=== PATIENT | male | born 1990 | race Caucasian/White ===

== ENCOUNTER 2023-11-10 13:21 | Emergency (ER) | payer BC ==
--- NOTE | 2023-11-10 13:59 | EDPHYS ---
Physician Documentation [facility] Name: Arie Martinez Age: 33 yrs Sex: Male : 1990 Arrival Date: 11/10/2023 Time: 13:21 Bed IW1 Private MD: ED Physician Fadi Gamez HPI: 11/09 13:51 This 33 yrs old Male presents to ER via Ambulatory with complaints of Insect Bite. cp 13:51 The patient was bitten on the left forearm, by insect. Onset: The symptoms/episode cp began/occurred 2 day(s) ago. Associated signs and symptoms: Pertinent positives: erythema at site, swelling at site, tenderness, Pertinent negatives: fever. Historical: - Allergies: 13:47 BEE STING; db - PMHx: 13:47 None; db - Immunization history:: Adult Immunizations unknown. - Infectious Disease History:: Denies. - Social history:: Smoking status: Patient denies any tobacco usage or history of. ROS: 13:53 Constitutional: Negative for body aches, chills, fever, poor PO intake, cp 13:53 Respiratory: Negative for cough, shortness of breath, wheezing, 13:53 Skin: Positive for erythema, swelling, of the left forearm, insect bite, Exam: 13:56 Head/Face: Normocephalic, atraumatic. cp 13:56 Constitutional: The patient appears in no acute distress, alert, awake, comfortable, non-toxic, well developed, well nourished, 13:56 Cardiovascular: Rate: normal, Rhythm: regular, 13:56 Respiratory: the patient does not display signs of respiratory distress, Respirations: normal, no use of accessory muscles, no retractions, labored breathing, is not present, 13:56 Skin: small superficial punctate bite appearing wound volar side mid left forearm with mild swelling and mild erythema. Vital Signs: 13:45 BP 153 / 87; Pulse 70; Resp 18; Temp 97.8; Pulse Ox 97% ; Weight 102.97 kg; Height 6 db ft. 4 in. ; 13:45 Body Mass Index 27.63 (102.97 kg, 193.04 cm) db MDM: 13:58 Data reviewed: vital signs, nurses notes, and as a result, I will discharge patient. cp 13:58 Differential diagnosis: cellulitis, abscess. Counseling: I had a detailed discussion cp with the patient and/or guardian regarding the historical points, exam findings, and any diagnostic results supporting the discharge/admit diagnosis, to return to the emergency department if symptoms worsen or persist or if there are any questions or concerns that arise at home. 13:59 Patient medically screened. cp Administered Medications: No medications were administered Disposition: 20:51 I was immediately available on-site in the Emergency Department for consultation in the ms3 care of the patient. Disposition Summary: 11/10/23 13:59 Discharge Ordered Notes: Location: Home cp Problem: new cp Symptoms: are unchanged cp Condition: Stable cp Diagnosis - Cellulitis of left upper limb cp Followup: cp - With: Private Physician - When: 2 - 3 days - Reason: Worsening of condition Discharge Instructions: - Discharge Summary Sheet cp - Cellulitis, Adult cp Forms: - Medication Reconciliation Form cp - Antibiotic Education cp - Prescription Opioid Use cp - Patient Portal Instructions cp - Leadership Thank You Letter cp Prescriptions: - Augmentin 875-125 mg Oral Tablet - take 1 tablet ORAL route every 12 hours for 10 days; 20 tablet; Refills: 0, cp Product Selection Permitted Signatures: Geovani Robertson, ORQUIDEA PA cp Fadi Gamez DO DO ms3 Anneliese Barrera RN RN db Corrections: (The following items were deleted from the chart) 13:48 13:47 Allergies: No Known Allergies; db db 13:48 13:47 Home Meds: BEE STINGS; db db
--- NOTE | 2023-11-10 13:59 | ER ---
Nurse's Notes [facility] Name: Arie Martinez Age: 33 yrs Sex: Male : 1990 Arrival Date: 11/10/2023 Time: 13:21 Bed IW1 Private MD: Diagnosis: Cellulitis of left upper limb Presentation: 11/09 13:45 Chief complaint: Patient states: LEFT FOREARM FELT A BITE ON MONDAY NIGHT TODAY db PROGRESSIVELY WORSE AND REDDER. Coronavirus screen: Client denies travel out of the [place] in the last 14 days. At this time, the client does not indicate any symptoms associated with coronavirus-19. Ebola Screen: Patient negative for fever greater than or equal to 101.5 degrees Fahrenheit, and additional compatible Ebola Virus Disease symptoms Patient denies exposure to infectious person. Patient denies travel to an Ebola-affected area in the 21 days before illness onset. No symptoms or risks identified at this time. Initial Sepsis Screen: Does the patient meet any 2 criteria? No. Patient's initial sepsis screen is negative. Does the patient have a suspected source of infection? No. Patient's initial sepsis screen is negative. Risk Assessment: Do you want to hurt yourself or someone else? Patient reports no desire to harm self or others. Onset of symptoms was November 10, 2023. 13:45 Method Of Arrival: Ambulatory db 13:45 Acuity: JOSE ANGEL 4 db Triage Assessment: 13:47 Bite description: bite sustained to left arm by a mosquito, animal information: db vaccination(s) is not applicable. General: Appears in no apparent distress. comfortable, Behavior is calm, cooperative. Pain: Complains of pain in left arm. Historical: - Allergies: 13:47 BEE STING; db - PMHx: 13:47 None; db - Immunization history:: Adult Immunizations unknown. - Infectious Disease History:: Denies. - Social history:: Smoking status: Patient denies any tobacco usage or history of. Screenin:[address] [facility] ED Fall Risk Assessment (Adult) History of falling in the last 3 months, db including since admission No falls in past 3 months (0 pts) Confusion or Disorientation No (0 pts) Intoxicated or Sedated No (0 pts) Impaired Gait No (0 pts) Mobility Assist Device Used No (0 pt) Altered Elimination No (0 pt) Score/Fall Risk Level 0 - 2 = Low Risk Oriented to surroundings, Maintained a safe environment. Abuse screen: Denies threats or abuse. Denies injuries from another. Nutritional screening: No deficits noted. Tuberculosis screening: No symptoms or risk factors identified. Assessment: 14:17 Reassessment: Patient appears in no apparent distress at this time. Patient and/or db family updated on plan of care and expected duration. Pain level reassessed. Patient is alert, oriented x 3, equal unlabored respirations, skin warm/dry/pink. General: Appears in no apparent distress. comfortable. Derm: Skin is intact, Skin is pink, warm \T\ dry. Vital Signs: 13:45 BP 153 / 87; Pulse 70; Resp 18; Temp 97.8; Pulse Ox 97% ; Weight 102.97 kg; Height 6 db ft. 4 in. ; 13:45 Body Mass Index 27.63 (102.97 kg, 193.04 cm) db ED Course: 13:22 Patient arrived in ED. ec2 13:23 Geovani Robertson PA is PHCP. cp 13:23 Fadi Gamez DO is Attending Physician. cp 13:47 Triage completed. db 13:47 Arm band placed on Patient placed in an exam room. db 14:17 Patient has correct armband on for positive identification. Provided Education on: db DISCHARGE, ANTIBIOTIC AND FOLLOWUP. 14:19 No provider procedures requiring assistance completed. Patient did not have IV access db during this emergency room visit. Administered Medications: No medications were administered Medication: 14:17 VIS not applicable for this client. db Outcome: 13:59 Discharge ordered by . cp 14:19 Discharged to home ambulatory, db 14:19 Condition: stable 14:19 Discharge instructions given to patient, Instructed on discharge instructions, follow up and referral plans. Prescriptions given X 1, 14:19 Patient left the ED. db Signatures: Geovani Robertson PA PA cp Benton, Danielle, RN RN db Clifford Bravo MD MD ec2 Corrections: (The following items were deleted from the chart) 13:48 13:47 Allergies: No Known Allergies; db db 13:48 13:47 Home Meds: BEE STINGS; db db
[2023-11-10 14:54] VITALS: BP 153/87; TEMP 97.8; O2SAT 97
== END 2023-11-10 14:19 | disposition home or self-care (01) ==
LOC: ER 13:21
DX: L03.114 Cellulitis of left upper limb (principal); Z91.030 Bee allergy status
CPT/HCPCS: 99283